=== PATIENT | female | born 1960 | race Two or more races ===

== ENCOUNTER 2019-03-11 11:36 | Emergency (ER) | payer BC ==
[~2019-03-11] VITALS: Ht 180.3 cm; Wt 90.7 kg
[2019-03-11] MEDS ORDERED: FORTAMET500 MG (12:07)
[2019-03-11] MEDS ORDERED: LANTUS SOL100 UNIT/1 (12:08)
== END 2019-03-11 17:52 | disposition home or self-care (01) ==
LOC: ER 11:36
DX: K52.89 Other specified noninfective gastroenteritis and colitis (principal); R53.81 Other malaise